=== PATIENT | female | born 1980 | race Hispanic/Latino ===

== ENCOUNTER 2023-07-12 11:23 | Emergency (ER) | payer OTHER, SELFPAY ==
[2023-07-12] MEDS ORDERED: Ketorolac Tromethamine 30 MG (1 mL) VIAL ONE ×2 (11:52→13:05)
[2023-07-12] MEDS ORDERED: Amoxicillin/Potassium Clav 875 MG TAB ONE (11:52)
[2023-07-12] MEDS ORDERED: HYDROcodone/Acetaminophen 10/325 mg Tablet ONE (11:52)
[2023-07-12] MEDS ORDERED: Iopamidol 300 61% 100 ML VIAL FS ONE (12:16)
[2023-07-12] MEDS ORDERED: Acetaminophen 325 MG TAB ONE (13:06)
[2023-07-12] MEDS ORDERED: carBAMazepine 100 mg Chewable Tablet PO SCH (13:30)
[2023-07-12 15:09] LABS: #Basophils 0.02 10x3/uL (0.0-0.2); #Eosinphils 0.17 10x3/uL (0.0-0.5); #Monocytes 0.56 10x3/uL (0.0-1.1); #Neutrophils 4.59 10x3/uL (1.5-8.4); %Basophils 0.3 % (0.0-2.0); %Eosinophils 2.3 % (0.0-6.0); %Lymphocytes 25.9 % (18.0-47.0); %Monocytes 7.7 % (0.0-10.0); %Neutrophils 63.4 % (40.0-75.0); Hematocrit 40.1 % (34.9-44.5); Mean Corpuscular HGB CONC 34.9 g/dL (32.0-36.0); Mean Corpuscular Hemoglobin 33.7 pg (27.0-33.0); Mean Corpuscular Volume 96.6 fl (81.6-98.3); Mean Platelet Volume 8.4 fl (7.4-10.4); Platelet Count 349 10x3/uL (150-450); RBC Distribution Width 12.6 % (11.5-14.5); Red Blood Cell (RBC) Count 4.15 10x6/uL (3.90-5.03); White Blood Cell (WBC) Count 7.3 10x3/uL (3.5-10.5)
[2023-07-12 15:28] LABS: ALT (SGPT) 11 U/L (8-55); AST (SGOT) 20 U/L (5-34); Alkaline Phosphatase 48 U/L (40-110); Anion Gap 13 mmol/L (10-20); BUN (Urea Nitrogen) 7 mg/dL (7.0-18.7); Bilirubin, Total 0.3 mg/dL (0.2-1.2); Calc. Creatinine Clearance 0 mL/min (70-130); Carbon Dioxide 25 mmol/L (22-29); Chloride 104 mmol/L (98-107); Estimated GFR 104; Globulin 3.4 g/dL (2.4-3.5); Glucose 88 mg/dL (70-105); Potassium 4.8 mmol/L (3.5-5.1); Protein, Total 7.4 g/dL (6.0-8.3); Sodium 137 mmol/L (136-145)
[2023-07-12] MEDS ORDERED: Dexamethasone 10 MG/ML VIAL ONE (16:02)
== END 2023-07-12 16:19 | disposition home or self-care (01) ==
LOC: CSHERS 11:23
DX: K04.7 Periapical abscess without sinus (principal); F17.210 Nicotine dependence, cigarettes, uncomplicated
CPT/HCPCS: 70450; 70487; 80053; 85025; 96372; 96374; J1100; J1885; Q9967

== ENCOUNTER 2025-01-07 17:20 | Emergency (ER) | payer SELFPAY ==
[2025-01-07] MEDS ORDERED: Ketorolac Tromethamine 30 MG (1 mL) VIAL ONE (18:50)
[2025-01-07] MEDS ORDERED: Dexamethasone 10 MG/ML VIAL ONE (18:50)
== END 2025-01-07 19:50 | disposition home or self-care (01) ==
LOC: CSHERS 17:20
DX: J06.9 Acute upper respiratory infection, unspecified (principal); J18.9 Pneumonia, unspecified organism; F17.210 Nicotine dependence, cigarettes, uncomplicated; Z55.6 Problems related to health literacy
CPT/HCPCS: 71046; 87428; J1100; J1885